=== PATIENT | male | born 1975 | race Two or more races ===

== ENCOUNTER 2021-08-21 14:00 | Outpatient (REF) | payer OTHER, SELFPAY ==
[2021-08-21 14:33] LABS: Binax Internal Control QC Valid; Binax Now Covid-19 Ag Negative (Negative)
== END 2021-08-21 14:01 | disposition home or self-care (01) ==
LOC: HO.LAB 14:00
PROVIDERS: Visit Provider Internal Medicine
DX: Z20.822 Contact with and (suspected) exposure to COVID-19 (principal)
CPT/HCPCS: C9803

== ENCOUNTER 2022-04-08 12:20 | Outpatient (REF) | payer OTHER, SELFPAY ==
[2022-04-08 12:49] LABS: MANUAL DIFF FLAG NO
[2022-04-08 13:21] LABS: Basophils Absolute Auto 0.1 X10*3/uL (0.0-0.2); Basophils Percent Auto 0.6 % (0-2); Eosinophils Absolute Auto 0.5 X10*3/uL (0.0-0.4); Eosinophils Percent Auto 5.7 % (0-4); Hematocrit 45.1 % (42.0-52.0); Hemoglobin 15.6 g/dl (14.0-18.0); Imm Gran Abs Auto 0.05 X10*3/uL (0.00-0.03); Imm Gran Pct Auto 0.6 % (0.0-0.4); Lymphocytes Percent Auto 22.3 % (20-40); Mean Corpuscular HGB Conc 34.6 g/dl (31.0-36.0); Mean Corpuscular Hemoglobin 31.4 pg (27.0-33.0); Mean Corpuscular Volume 90.7 fL (80.0-98.0); Mean Platelet Volume 10.6 fL (9.4-12.4); Monocytes Absolute Auto 0.6 X10*3/uL (0.1-1.2); Monocytes Percent Auto 6.7 % (2-11); Neutrophils Absolute Auto 5.7 x10*3/uL (2.0-8.3); Neutrophils Percent Auto 64.1 % (45-73); Platelet Count 227 X10*3/uL (160-400); Red Blood Count 4.97 X10*6/uL (4.60-5.80); Red Cell Distribution Width 13.1 % (11.0-16.0); White Blood Count 8.8 X10*3/uL (4.8-10.8)
[2022-04-11 10:42] LABS: Immunoglobulin E 492 kU/L (<OR=114)
== END 2022-04-08 12:21 | disposition home or self-care (01) ==
LOC: HO.LAB 12:20
PROVIDERS: PCP Internal Medicine; Visit Provider Internal Medicine Pulmonary Disease
DX: J45.909 Unspecified asthma, uncomplicated (principal); Z91.09 Other allergy status, other than to drugs and biological substances
CPT/HCPCS: 36415; 82785; 85025; 86003; 99202

== ENCOUNTER 2022-04-29 15:06 | Outpatient (REF) | payer OTHER, SELFPAY ==
--- NOTE | 2022-04-29 16:34 | PFT_ITS ---
Forced vital capacity 68%, FEV1 65%, FEV1/FVC ratio 76. HRY54-96 is 52% and MVV 54%. Post bronchodilator therapy, there is a slight improvement in HGM62-21. Total lung capacity 77%. Residual volume 99%. Diffusion capacity 84%. CONCLUSION: Mild restrictive pulmonary disorder. Mild obstructive airway disorder with slight improvement after bronchodilator therapy. Clinical correlation is recommended. MD THAIS Chamorro/NINA / [id number]
== END 2022-04-29 15:07 | disposition home or self-care (01) ==
LOC: HO.RESP 15:06
PROVIDERS: PCP Internal Medicine; Visit Provider Internal Medicine Pulmonary Disease
DX: J45.909 Unspecified asthma, uncomplicated (principal)
CPT/HCPCS: 94060; 94727; 94729

== ENCOUNTER → 2022-05-06 11:50 | Outpatient (BNVA) | payer OTHER, SELFPAY | PROVIDERS: PCP Internal Medicine; Visit Provider Internal Medicine Pulmonary Disease | DX: J45.909 Unspecified asthma, uncomplicated (principal); Z91.09 Other allergy status, other than to drugs and biological substances | CPT/HCPCS: 99212 ==

== ENCOUNTER 2022-06-02 13:37 | Outpatient (REF) | payer OTHER, SELFPAY | END 2022-06-02 13:38 | disposition home or self-care (01) | LOC: HO.MDS 13:37 | PROVIDERS: Visit Provider Internal Medicine Pulmonary Disease | DX: J45.50 Severe persistent asthma, uncomplicated (principal) | CPT/HCPCS: 96372; J2357 ==

== ENCOUNTER 2022-06-16 13:31 | Outpatient (REF) | payer OTHER, SELFPAY | END 2022-06-16 13:32 | disposition home or self-care (01) | LOC: HO.MDS 13:31 | PROVIDERS: Visit Provider Internal Medicine Pulmonary Disease | DX: J45.50 Severe persistent asthma, uncomplicated (principal) | CPT/HCPCS: 96372 ==

== ENCOUNTER 2022-06-30 13:26 | Outpatient (REF) | payer OTHER, SELFPAY | END 2022-06-30 13:27 | disposition home or self-care (01) | LOC: HO.MDS 13:26 | PROVIDERS: Visit Provider Internal Medicine Pulmonary Disease | DX: J45.50 Severe persistent asthma, uncomplicated (principal) | CPT/HCPCS: 96372; J2357 ==

== ENCOUNTER → 2022-07-07 11:39 | Outpatient (BNVA) | payer OTHER, SELFPAY | PROVIDERS: PCP Internal Medicine; Visit Provider Internal Medicine Pulmonary Disease | DX: J45.909 Unspecified asthma, uncomplicated (principal); Z91.09 Other allergy status, other than to drugs and biological substances; Z79.899 Other long term (current) drug therapy | CPT/HCPCS: 99212 ==

== ENCOUNTER 2022-07-23 14:08 | Outpatient (REF) | payer OTHER, SELFPAY | END 2022-07-23 14:09 | disposition home or self-care (01) | LOC: HO.MDS 14:08 | PROVIDERS: Visit Provider Internal Medicine Pulmonary Disease | DX: J45.50 Severe persistent asthma, uncomplicated (principal) | CPT/HCPCS: 96372 ==

== ENCOUNTER 2022-08-06 13:39 | Outpatient (REF) | payer OTHER, SELFPAY | END 2022-08-06 13:40 | disposition home or self-care (01) | LOC: HO.MDS 13:39 | PROVIDERS: Visit Provider Internal Medicine Pulmonary Disease | DX: J45.50 Severe persistent asthma, uncomplicated (principal) | CPT/HCPCS: 96372; J2357 ==

== ENCOUNTER → 2022-08-19 13:57 | Outpatient (BNVA) | payer OTHER, SELFPAY | PROVIDERS: PCP Internal Medicine; Visit Provider Internal Medicine Pulmonary Disease | DX: J45.50 Severe persistent asthma, uncomplicated (principal); Z91.09 Other allergy status, other than to drugs and biological substances; Z79.899 Other long term (current) drug therapy | CPT/HCPCS: 99212 ==

== ENCOUNTER 2022-08-20 13:38 | Outpatient (REF) | payer OTHER, SELFPAY | END 2022-08-20 13:39 | disposition home or self-care (01) | LOC: HO.MDS 13:38 | PROVIDERS: Visit Provider Internal Medicine Pulmonary Disease | DX: J45.50 Severe persistent asthma, uncomplicated (principal) | CPT/HCPCS: 96372 ==

== ENCOUNTER 2022-09-03 13:40 | Outpatient (REF) | payer OTHER, SELFPAY | END 2022-09-03 13:41 | disposition home or self-care (01) | LOC: HO.MDS 13:40 | PROVIDERS: Visit Provider Internal Medicine Pulmonary Disease | DX: J45.50 Severe persistent asthma, uncomplicated (principal) | CPT/HCPCS: 96372; J2357 ==

== ENCOUNTER 2022-09-17 13:25 | Outpatient (REF) | payer OTHER, SELFPAY | END 2022-09-17 13:26 | disposition home or self-care (01) | LOC: HO.MDS 13:25 | PROVIDERS: Visit Provider Internal Medicine Pulmonary Disease | DX: J45.50 Severe persistent asthma, uncomplicated (principal) | CPT/HCPCS: 96372 ==

== ENCOUNTER 2022-10-08 14:12 | Outpatient (REF) | payer OTHER, SELFPAY | END 2022-10-08 14:13 | disposition home or self-care (01) | LOC: HO.MDS 14:12 | PROVIDERS: Visit Provider Internal Medicine Pulmonary Disease | DX: J45.50 Severe persistent asthma, uncomplicated (principal) | CPT/HCPCS: 96372; J2357 ==

== ENCOUNTER 2022-10-23 14:07 | Outpatient (REF) | payer OTHER, SELFPAY | END 2022-10-23 14:08 | disposition home or self-care (01) | LOC: HO.MDS 14:07 | PROVIDERS: Visit Provider Internal Medicine Pulmonary Disease | DX: J45.51 Severe persistent asthma with (acute) exacerbation (principal); Z91.09 Other allergy status, other than to drugs and biological substances; Z79.899 Other long term (current) drug therapy | CPT/HCPCS: 96372; 99212; J2357 ==

== ENCOUNTER → 2022-11-07 13:59 | Outpatient (BNVA) | payer OTHER, SELFPAY | PROVIDERS: PCP Internal Medicine; Visit Provider Internal Medicine Pulmonary Disease | DX: J45.909 Unspecified asthma, uncomplicated (principal); Z71.9 Counseling, unspecified | CPT/HCPCS: 99211 ==

== ENCOUNTER → 2022-12-24 15:02 | Outpatient (BNVA) | payer OTHER, SELFPAY | PROVIDERS: PCP Internal Medicine; Visit Provider Internal Medicine Pulmonary Disease | DX: J45.909 Unspecified asthma, uncomplicated (principal); Z91.09 Other allergy status, other than to drugs and biological substances; Z79.899 Other long term (current) drug therapy | CPT/HCPCS: 99212 ==

== ENCOUNTER 2023-07-02 13:29 | Outpatient (AMB) | payer OTHER, SELFPAY ==
[2023-07-02 13:30] VITALS: BP 122/67; PULSE 62; O2SAT 96; BMI 28.6
--- NOTE | 2023-07-02 13:30 | A.OFFVIS_ITS ---
Intake Vital Signs 07/02/23 13:30 Height 5 ft 7 in Weight 182 lb 7.924 oz BMI 28.6 BP 122/67 Blood Pressure Location Rt brachial Pulse 62 Pulse Source Doppler Pulse Oximetry (%) 96 Oxygen Delivery Method Room Air Intake Visit Reasons: Asthma Allergies No Known Allergies Allergy (Verified 07/02/23 13:32) HPI Asthma HPI Details 47-year-old gentleman, former [facility], now followed for severe persistent asthma and environmental allergies.? He has been using Dupixent, Dulera, albuterol MDI, and Singulair with excellent control of his symptoms. He denies any recent exacerbations. Review of Systems Const Denies daytime sleepiness, Denies excessive sweating, Denies fatigue, Denies fever(s), Denies lethargy, Denies malaise, Denies night sweats, Denies snoring and Denies weight loss Eyes Denies blurry vision and Denies itchy eyes ENT Denies nasal congestion, Denies post nasal drip, Denies sinus pain, Denies sinus pressure and Denies other ( Thrush) Card Denies chest pain, Denies pedal edema, Denies dyspnea, Denies orthopnea and Denies paroxysmal nocturnal dyspnea Resp Denies cough, Denies hemoptysis, Denies excessive phlegm production, Denies dyspnea, Denies snoring and Denies wheezing GI Denies abdominal pain and Denies heartburn Musc Denies myalgias, Denies arthralgias and Denies joint swelling Skin/Breast Denies rash Neuro Denies memory loss and Denies seizure-like activity Psych Denies abnormal sleep pattern, Denies anxiety and Denies memory loss Endo Denies excessive sweating, Denies fatigue and Denies heat intolerance Oneal/Lymph Denies easy bruising Aller/Immun Denies itchy eyes, Denies seasonal rhinorrhea and Denies wheezing Physical Exam Vital Signs: Last Vital Signs Pulse 62 07/02/23 13:30 BP 122/67 07/02/23 13:30 Pulse Ox 96 07/02/23 13:30 Oxygen Delivery Method Room Air 07/02/23 13:30 BMI result Body Mass Index 28.6 Const General: no acute distress and alert Nutritional Appearance: not obese Orientation/consciousness: Other orientation findings ( oriented) HEENT Head: Yes atraumatic Eyes General: appearance normal, both eyes and all related structures Sclerae: sclerae normal EOM: EOMs intact bilaterally Neck Neck: Yes supple Lymphatic: no lymphadenopathy noted Resp Effort & Inspection: normal respiratory effort and no use of accessory muscles Auscultation: clear to auscultation bilaterally Cardio Rate: regular rate Rhythm: regular rhythm Heart sounds: no gallops, no murmurs and no rubs Skin General skin exam: other ( warm) Extrem General: No clubbing, No cyanosis and No edema Assessment & Plan Assessment & Plan (1) Asthma: Code(s): J45.909 - Unspecified asthma, uncomplicated Plan: Well controlled on Dupixent, Dulera, and albuterol MDI. Continue current regime n. (2) Environmental allergies: Code(s): Z91.09 - Other allergy status, other than to drugs and biological substances Plan: Will control on Dupixent Singulair. Continue current regimen. Coding Level of Care Code Est Pt Level 4 (46552) Diagnoses Asthma J45.909 Environmental allergies Z91.09
== END 2023-07-02 13:51 | disposition home or self-care (01) ==
PROVIDERS: PCP Internal Medicine; Visit Provider Internal Medicine Pulmonary Disease
DX: J45.909 Unspecified asthma, uncomplicated (principal); Z91.09 Other allergy status, other than to drugs and biological substances
CPT/HCPCS: 99214

== ENCOUNTER → 2023-07-02 13:29 | Outpatient (BNVA) | payer OTHER, SELFPAY | PROVIDERS: PCP Internal Medicine; Visit Provider Internal Medicine Pulmonary Disease | DX: J45.909 Unspecified asthma, uncomplicated (principal); Z91.09 Other allergy status, other than to drugs and biological substances | CPT/HCPCS: 99212 ==

== ENCOUNTER 2023-12-31 12:52 | Outpatient (AMB) | payer OTHER, SELFPAY ==
[2023-12-31 12:56] VITALS: BP 111/74; PULSE 77; O2SAT 96; BMI 28.1
--- NOTE | 2023-12-31 12:56 | MHC.OFFVIS ---
Vital Signs 12/31/23 12:56 Height 5 ft 7 in Weight 179 lb 10.828 oz BMI 28.1 BP 111/74 Blood Pressure Location Rt brachial Position Sitting Pulse 77 Pulse Source Doppler Pulse Oximetry (%) 96 Oxygen Delivery Method Room Air Intake Visit Reasons: Asthma Allergies No Known Allergies Allergy (Verified 07/02/23 13:32) HPI HPI Asthma: Details: 48-year-old gentleman, former minimal smoker, now followed for severe persistent asthma and environmental allergies.? He has been using Dupixent, Dulera, albuterol MDI, and Singulair with excellent control of his symptoms. He denies any recent exacerbations. Patient does complain of mild erythematous rash over his bilateral anterior shins. Review of Systems Const Denies daytime sleepiness, Denies excessive sweating, Denies fatigue, Denies fever(s), Denies lethargy, Denies malaise, Denies night sweats, Denies snoring and Denies weight loss Eyes Denies blurry vision and Denies itchy eyes ENT Denies nasal congestion, Denies post nasal drip, Denies sinus pain, Denies sinus pressure and Denies other ( Thrush) Card Denies chest pain, Denies pedal edema, Denies dyspnea, Denies orthopnea and Denies paroxysmal nocturnal dyspnea Resp Denies cough, Denies hemoptysis, Denies excessive phlegm production, Denies dyspnea, Denies snoring and Denies wheezing GI Denies abdominal pain and Denies heartburn Musc Denies myalgias, Denies arthralgias and Denies joint swelling Neuro Denies memory loss and Denies seizure-like activity Psych Denies abnormal sleep pattern, Denies anxiety and Denies memory loss Endo Denies excessive sweating, Denies fatigue and Denies heat intolerance Oneal/Lymph Denies easy bruising Aller/Immun Denies itchy eyes, Denies seasonal rhinorrhea and Denies wheezing Physical Exam Vital Signs: Last Vital Signs Pulse 77 12/31/23 12:56 BP 111/74 12/31/23 12:56 Pulse Ox 96 12/31/23 12:56 Oxygen Delivery Method Room Air 12/31/23 12:56 BMI result Body Mass Index 28.1 Const General: no acute distress and alert Nutritional Appearance: not obese Orientation/consciousness: Other orientation findings ( oriented) HEENT Head: Yes atraumatic Eyes General: appearance normal, both eyes and all related structures Sclerae: sclerae normal EOM: EOMs intact bilaterally Neck Neck: Yes supple Lymphatic: no lymphadenopathy noted Resp Effort & Inspection: normal respiratory effort and no use of accessory muscles Auscultation: clear to auscultation bilaterally Cardio Rate: regular rate Rhythm: regular rhythm Heart sounds: no gallops, no murmurs and no rubs Skin General skin exam: other ( warm) Extrem General: No clubbing, No cyanosis and No edema Assessment & Plan Assessment & Plan (1) Asthma: Code(s): J45.909 - Unspecified asthma, uncomplicated Category: Medical Plan: Well controlled on Dupixent, Dulera, duo nebs, and albuterol MDI. Continue current regimen. (2) Environmental allergies: Code(s): Z91.09 - Other allergy status, other than to drugs and biological substances Category: Medical Plan: Well controlled on Dupixent. Patient does complain of mild bilateral anterior lewis rash, if worsens, will consider switching to Tezspire. Coding Level of Care Code Est Pt Level 4 (99034) Diagnoses Asthma J45.909 Environmental allergies Z91.09
== END 2023-12-31 13:16 | disposition home or self-care (01) ==
PROVIDERS: PCP Internal Medicine; Visit Provider Internal Medicine Pulmonary Disease
DX: J45.909 Unspecified asthma, uncomplicated (principal); Z91.09 Other allergy status, other than to drugs and biological substances
CPT/HCPCS: 99214

== ENCOUNTER → 2023-12-31 12:52 | Outpatient (BNVA) | payer OTHER, SELFPAY | PROVIDERS: PCP Internal Medicine; Visit Provider Internal Medicine Pulmonary Disease | DX: J45.909 Unspecified asthma, uncomplicated (principal); Z91.09 Other allergy status, other than to drugs and biological substances | CPT/HCPCS: 99212 ==

== ENCOUNTER 2024-04-18 13:21 | Outpatient (AMB) | payer OTHER, SELFPAY ==
[2024-04-18 13:23] VITALS: BP 126/72; PULSE 84; O2SAT 96; BMI 28.5
--- NOTE | 2024-04-18 13:23 | A.OFFVIS_ITS ---
Vital Signs 04/18/24 13:23 Height 5 ft 7 in Weight 181 lb 14.102 oz BMI 28.5 BP 126/72 Blood Pressure Location Rt brachial Position Sitting Pulse 84 Pulse Source Doppler Pulse Oximetry (%) 96 Oxygen Delivery Method Room Air Intake Visit Reasons: Asthma Allergies No Known Allergies Allergy (Verified 04/18/24 13:29) HPI HPI Asthma: Details: 48-year-old gentleman, former minimal smoker, now followed for severe persistent asthma and environmental allergies.? He has been using Dupixent, Dulera, albuterol MDI, and Singulair with excellent control of his symptoms. He denies any recent exacerbations. Patient does continue to complain of mild erythematous rash over his bilateral anterior shins, that does not appear to have changed since the last visit. Review of Systems Const Denies daytime sleepiness, Denies excessive sweating, Denies fatigue, Denies fever(s), Denies lethargy, Denies malaise, Denies night sweats, Denies snoring and Denies weight loss Eyes Denies blurry vision and Denies itchy eyes ENT Denies nasal congestion, Denies post nasal drip, Denies sinus pain, Denies sinus pressure and Denies other ( Thrush) Card Denies chest pain, Denies pedal edema, Denies dyspnea, Denies orthopnea and Denies paroxysmal nocturnal dyspnea Resp Denies cough, Denies hemoptysis, Denies excessive phlegm production, Denies d yspnea, Denies snoring and Denies wheezing GI Denies abdominal pain and Denies heartburn Musc Denies myalgias, Denies arthralgias and Denies joint swelling Skin/Breast Reports rash (Bilateral shins) Neuro Denies memory loss and Denies seizure-like activity Psych Denies abnormal sleep pattern, Denies anxiety and Denies memory loss Endo Denies excessive sweating, Denies fatigue and Denies heat intolerance Oneal/Lymph Denies easy bruising Aller/Immun Denies itchy eyes, Denies seasonal rhinorrhea and Denies wheezing Physical Exam Vital Signs: Last Vital Signs Pulse 84 04/18/24 13:23 BP 126/72 04/18/24 13:23 Pulse Ox 96 04/18/24 13:23 Oxygen Delivery Method Room Air 04/18/24 13:23 BMI result Body Mass Index 28.5 Const General: no acute distress and alert Nutritional Appearance: not obese Orientation/consciousness: Other orientation findings ( oriented) HEENT Head: Yes atraumatic Eyes General: appearance normal, both eyes and all related structures Sclerae: sclerae normal EOM: EOMs intact bilaterally Neck Neck: Yes supple Lymphatic: no lymphadenopathy noted Resp Effort & Inspection: normal respiratory effort and no use of accessory muscles Auscultation: clear to auscultation bilaterally Cardio Rate: regular rate Rhythm: regular rhythm Heart sounds: no gallops, no murmurs and no rubs Skin General skin exam: other ( warm) Rashes: rashes noted (Bilateral anterior shins) Extrem General: No clubbing, No cyanosis and No edema Assessment & Plan Assessment & Plan (1) Asthma: Code(s): J45.909 - Unspecified asthma, uncomplicated Category: Medical Plan: Well controlled on Dulera, albuterol MDI, duo nebs, and Dupixent. Patient is somewhat concern about a rash on his bilateral shins that appears to have not changed since the last office visit. At this time patient wants to continue with Dupixent. Patient has been advised to notify the office if rash starts to get worse. (2) Environmental allergies: Code(s): Z91.09 - Other allergy status, other than to drugs and biological substances Category: Medical Plan: Well controlled on Dupixent and Singulair. Continue current regimen. Coding Level of Care Code Est Pt Level 4 (02370) Diagnoses Asthma J45.909 Environmental allergies Z91.09
== END 2024-04-18 13:39 | disposition home or self-care (01) ==
PROVIDERS: PCP Internal Medicine; Visit Provider Internal Medicine Pulmonary Disease
DX: J45.909 Unspecified asthma, uncomplicated (principal); Z91.09 Other allergy status, other than to drugs and biological substances
CPT/HCPCS: 99214

== ENCOUNTER → 2024-04-18 13:21 | Outpatient (BNVA) | payer OTHER, SELFPAY | PROVIDERS: PCP Internal Medicine; Visit Provider Internal Medicine Pulmonary Disease | DX: J45.50 Severe persistent asthma, uncomplicated (principal); Z91.09 Other allergy status, other than to drugs and biological substances | CPT/HCPCS: 99212 ==

== ENCOUNTER 2024-07-14 12:56 | Outpatient (AMB) | payer OTHER, SELFPAY ==
--- NOTE | 2024-07-14 13:03 | MHC.OFFVIS ---
Vital Signs 07/14/24 13:05 Height 5 ft 7 in Weight 185 lb BMI 29.0 BP 102/64 Blood Pressure Location Rt brachial Position Sitting Pulse 66 Pulse Source Doppler Pulse Oximetry (%) 96 Oxygen Delivery Method Room Air Intake Visit Reasons: Asthma Allergies No Known Allergies Allergy (Verified 04/18/24 13:29) HPI HPI Asthma: Details: 48-year-old gentleman, former minimal smoker, now followed for severe persistent asthma and environmental allergies.? He has been using Dupixent, Dulera, albuterol MDI, and Singulair with excellent control of his symptoms. He denies any recent exacerbations. Patient does continue to complain of mild erythematous rash over his bilateral anterior shins, that does not appear to have changed since the last visit. Review of Systems Const Denies daytime sleepiness, Denies excessive sweating, Denies fatigue, Denies fever(s), Denies lethargy, Denies malaise, Denies night sweats, Denies snoring and Denies weight loss Eyes Denies blurry vision and Denies itchy eyes ENT Denies nasal congestion, Denies post nasal drip, Denies sinus pain, Denies sinus pressure and Denies other ( Thrush) Card Denies chest pain, Denies pedal edema, Denies dyspnea, Denies orthopnea and Denies paroxysmal nocturnal dyspnea Resp Denies cough, Denies hemoptysis, Denies excessive phlegm production, Denies dyspnea, Denies snoring and Denies wheezing GI Denies abdominal pain and Denies heartburn Musc Denies myalgias, Denies arthralgias and Denies joint swelling Skin/Breast Reports rash Neuro Denies memory loss and Denies seizure-like activity Psych Denies abnormal sleep pattern, Denies anxiety and Denies memory loss Endo Denies excessive sweating, Denies fatigue and Denies heat intolerance Oneal/Lymph Denies easy bruising Aller/Immun Denies itchy eyes, Denies seasonal rhinorrhea and Denies wheezing Physical Exam Vital Signs: Last Vital Signs Pulse 66 07/14/24 13:05 BP 102/64 07/14/24 13:05 Pulse Ox 96 07/14/24 13:05 Oxygen Delivery Method Room Air 07/14/24 13:05 BMI result Body Mass Index 29.0 Const General: no acute distress and alert Nutritional Appearance: not obese Orientation/consciousness: Other orientation findings ( oriented) HEENT Head: Yes atraumatic Eyes General: appearance normal, both eyes and all related structures Sclerae: sclerae normal EOM: EOMs intact bilaterally Neck Neck: Yes supple Lymphatic: no lymphadenopathy noted Resp Effort & Inspection: normal respiratory effort and no use of accessory muscles Auscultation: clear to auscultation bilaterally Cardio Rate: regular rate Rhythm: regular rhythm Heart sounds: no gallops, no murmurs and no rubs Skin General skin exam: other ( Bilateral anterior shins rash) Extrem General: No clubbing, No cyanosis and No edema Assessment & Plan Assessment & Plan (1) Asthma: Code(s): J45.909 - Unspecified asthma, uncomplicated Category: Medical Plan: Baseline controlled on Dupixent, Dulera, albuterol MDI, and duo nebs. At this time patient wants to hold Dupixent to see if it is causing his anterior lewis rash. (2) Environmental allergies: Code(s): Z91.09 - Other allergy status, other than to drugs and biological substances Category: Medical Plan: Continue loratadine. Hold Dupixent. Medications: New fluticasone propionate 50 mcg/actuation 1 spray intranasal DAILY 16 grams 6RF Refilled Dulera 200-5 mcg/actuation (mometasone-formoterol) 2 puffs inhalation BID 1 ea 6RF 30 days NS ipratropium-albuterol 0.5 mg-3 mg(2.5 mg base)/3 mL 3 mL inhalation Q6H PRN 270 mL 6RF shortness of breath or wheezing 30 days albuterol sulfate 90 mcg/actuation 2 puffs inhalation QID PRN 1 ea 6RF for wheezing Coding Level of Care Code Est Pt Level 4 (05127) Diagnoses Asthma J45.909 Environmental allergies Z91.09
[2024-07-14 13:05] VITALS: BP 102/64; PULSE 66; O2SAT 96; BMI 29.0
== END 2024-07-14 13:17 | disposition home or self-care (01) ==
PROVIDERS: PCP Internal Medicine; Visit Provider Internal Medicine Pulmonary Disease
DX: J45.909 Unspecified asthma, uncomplicated (principal); Z91.09 Other allergy status, other than to drugs and biological substances
CPT/HCPCS: 99214

== ENCOUNTER → 2024-07-14 12:56 | Outpatient (BNVA) | payer OTHER, SELFPAY | PROVIDERS: PCP Internal Medicine; Visit Provider Internal Medicine Pulmonary Disease | DX: J45.50 Severe persistent asthma, uncomplicated (principal); Z91.09 Other allergy status, other than to drugs and biological substances | CPT/HCPCS: 99212 ==

== ENCOUNTER 2024-10-03 13:14 | Outpatient (AMB) | payer OTHER, SELFPAY ==
[2024-10-03 13:20] VITALS: BP 122/70; PULSE 71; O2SAT 96; BMI 29.2
--- NOTE | 2024-10-03 13:20 | MHC.OFFVIS ---
Vital Signs 10/03/24 13:20 Height 5 ft 7 in Weight 186 lb 4.65 oz BMI 29.2 BP 122/70 Blood Pressure Location Lt brachial Position Sitting Pulse 71 Pulse Source Doppler Pulse Oximetry (%) 96 Oxygen Delivery Method Room Air Intake Visit Reasons: Asthma Allergies No Known Allergies Allergy (Verified 10/03/24 13:25) HPI HPI Asthma: Details: 48-year-old gentleman, former minimal smoker, now followed for severe persistent asthma and environmental allergies.? He has been using Dupixent, Dulera, albuterol MDI, and Singulair with excellent control of his symptoms. He denies any recent exacerbations. Patient does continue to complain of mild erythematous rash over his bilateral anterior shins, that does not appear to have changed since the last visit, but he did want to stop his Dupixent at the last office visit. Today his symptoms as controlled and he wants to restart Dupixent again. Review of Systems Const Denies daytime sleepiness, Denies excessive sweating, Denies fatigue, Denies fever(s), Denies lethargy, Denies malaise, Denies night sweats, Denies snoring and Denies weight loss Eyes Denies blurry vision and Denies itchy eyes ENT Denies nasal congestion, Denies post nasal drip, Denies sinus pain, Denies sinus pressure and Denies other ( Thrush) Card Denies chest pain, Denies pedal edema, Denies dyspnea, Denies orthopnea and Denies paroxysmal nocturnal dyspnea Resp Denies cough, Denies hemoptysis, Denies excessive phlegm production, Denies dyspnea, Denies snoring and Denies wheezing GI Denies abdominal pain and Denies heartburn Musc Denies myalgias, Denies arthralgias and Denies joint swelling Skin/Breast Denies rash Neuro Denies memory loss and Denies seizure-like activity Psych Denies abnormal sleep pattern, Denies anxiety and Denies memory loss Endo Denies excessive sweating, Denies fatigue and Denies heat intolerance Oneal/Lymph Denies easy bruising Aller/Immun Denies itchy eyes, Denies seasonal rhinorrhea and Denies wheezing Physical Exam Vital Signs: Last Vital Signs Pulse 71 10/03/24 13:20 BP 122/70 10/03/24 13:20 Pulse Ox 96 10/03/24 13:20 Oxygen Delivery Method Room Air 10/03/24 13:20 BMI result Body Mass Index 29.2 Const General: no acute distress and alert Nutritional Appearance: not obese Orientation/consciousness: Other orientation findings ( oriented) HEENT Head: Yes atraumatic Eyes General: appearance normal, both eyes and all related structures Sclerae: sclerae normal EOM: EOMs intact bilaterally Neck Neck: Yes supple Lymphatic: no lymphadenopathy noted Resp Effort & Inspection: normal respiratory effort and no use of accessory muscles Auscultation: clear to auscultation bilaterally Cardio Rate: regular rate Rhythm: regular rhythm Heart sounds: no gallops, no murmurs and no rubs Skin General skin exam: other ( warm) Extrem General: No clubbing, No cyanosis and No edema Assessment & Plan Assessment & Plan (1) Asthma: Code(s): J45.909 - Unspecified asthma, uncomplicated Category: Medical Plan: Suboptimal control on Xolair, duo nebs, and albuterol MDI. Will restart on Dupixent. (2) Environmental allergies: Code(s): Z91.09 - Other allergy status, other than to drugs and biological substances Category: Medical Plan: Expect to improve on Dupixent. Medications: Refilled ipratropium-albuterol 0.5 mg-3 mg(2.5 mg base)/3 mL 3 mL inhalation Q6H PRN 270 mL 6RF shortness of breath or wheezing 30 days Coding Level of Care Code Est Pt Level 4 (85907) Diagnoses Asthma J45.909 Environmental allergies Z91.09
== END 2024-10-03 13:46 | disposition home or self-care (01) ==
PROVIDERS: PCP Internal Medicine; Visit Provider Internal Medicine Pulmonary Disease
DX: J45.909 Unspecified asthma, uncomplicated (principal); Z91.09 Other allergy status, other than to drugs and biological substances
CPT/HCPCS: 99214

== ENCOUNTER → 2024-10-03 13:14 | Outpatient (BNVA) | payer OTHER, SELFPAY | PROVIDERS: PCP Internal Medicine; Visit Provider Internal Medicine Pulmonary Disease | DX: J45.909 Unspecified asthma, uncomplicated (principal); Z91.09 Other allergy status, other than to drugs and biological substances | CPT/HCPCS: 99212 ==

== ENCOUNTER 2025-01-03 13:17 | Outpatient (AMB) | payer OTHER, SELFPAY ==
[2025-01-03 13:22] VITALS: BP 120/78; PULSE 69; O2SAT 95; BMI 28.3
--- NOTE | 2025-01-03 13:22 | A.OFFVIS_ITS ---
Vital Signs 01/03/25 13:22 Height 5 ft 7 in Weight 181 lb BMI 28.3 BP 120/78 Blood Pressure Location Lt brachial Position Sitting Pulse 69 Pulse Source Pulse Oximeter Pulse Oximetry (%) 95 Oxygen Delivery Method Room Air Intake Visit Reasons: asthma Allergies No Known Allergies Allergy (Verified 01/03/25 13:25) HPI HPI asthma: Details: 49-year-old gentleman, former minimal smoker, now followed for severe persistent asthma and environmental allergies.? He has been using Dupixent, Dulera, a lbuterol MDI, and Singulair with excellent control of his symptoms. He denies any recent exacerbations. Patient does continue to complain of mild erythematous rash over his bilateral anterior shins, that does not appear to have changed since the last visit, therefore he wanted to restart on Dupixent. Patient restarted on Dupixent after the last visit with significant improvement in his symptom control. He also continues on Dulera, duo nebs, and albuterol MDI. Review of Systems Const Denies daytime sleepiness, Denies excessive sweating, Denies fatigue, Denies fever(s), Denies lethargy, Denies malaise, Denies night sweats, Denies snoring and Denies weight loss Eyes Denies blurry vision and Denies itchy eyes ENT Denies nasal congestion, Denies post nasal drip, Denies sinus pain, Denies sinus pressure and Denies other ( Thrush) Card Denies chest pain, Denies pedal edema, Denies dyspnea, Denies orthopnea and Denies paroxysmal nocturnal dyspnea Resp Denies cough, Denies hemoptysis, Denies excessive phlegm production, Denies dyspnea, Denies snoring and Denies wheezing GI Denies abdominal pain and Denies heartburn Musc Denies myalgias, Denies arthralgias and Denies joint swelling Skin/Breast Denies rash Neuro Denies memory loss and Denies seizure-like activity Psych Denies abnormal sleep pattern, Denies anxiety and Denies memory loss Endo Denies excessive sweating, Denies fatigue and Denies heat intolerance Oneal/Lymph Denies easy bruising Aller/Immun Denies itchy eyes, Denies seasonal rhinorrhea and Denies wheezing Physical Exam Vital Signs: Last Vital Signs Pulse 69 01/03/25 13:22 BP 120/78 01/03/25 13:22 Pulse Ox 95 01/03/25 13:22 Oxygen Delivery Method Room Air 01/03/25 13:22 BMI result Body Mass Index 28.3 Const General: no acute distress and alert Nutritional Appearance: not obese Orientation/consciousness: Other orientation findings ( oriented) HEENT Head: Yes atraumatic Eyes General: appearance normal, both eyes and all related structures Sclerae: sclerae normal EOM: EOMs intact bilaterally Neck Neck: Yes supple Lymphatic: no lymphadenopathy noted Resp Effort & Inspection: normal respiratory effort and no use of accessory muscles Auscultation: clear to auscultation bilaterally Cardio Rate: regular rate Rhythm: regular rhythm Heart sounds: no gallops, no murmurs and no rubs Skin General skin exam: other ( warm) Extrem General: No clubbing, No cyanosis and No edema Assessment & Plan Assessment & Plan (1) Asthma: Code(s): J45.909 - Unspecified asthma, uncomplicated Category: Medical Plan: Well controlled Dupixent, Xolair, duo nebs, and albuterol MDI. Continue current regimen. Now with an allergic exacerbation, will treat with a brief course of prednisone. (2) Environmental allergies: Code(s): Z91.09 - Other allergy status, other than to drugs and biological substances Category: Medical Plan: Well controlled on Dupixent. Continue current regimen. Medications: New nebulizer accessories (Adult Aerosol Mask) As directed 1 ea 0RF prednisone 40 mg (2 x 20 mg) PO DAILY 10 tabs 0RF Refilled ipratropium-albuterol 0.5 mg-3 mg(2.5 mg base)/3 mL 3 mL inhalation Q6H 30 days PRN 270 mL 6RF shortness of breath or wheezing Coding Level of Care Code Est Pt Level 4 (17629) Diagnoses Asthma J45.909 Environmental allergies Z91.09
--- OUTSIDE RECORDS SUMMARY | 2025-01-03 15:44 | XMS_ITS | Encounter Summary ---
Author Organization [facility] Address [address] [place] [address] Care Team Providers Care Life Sciences Teacher Name Role Phone Lilly Pitts MD Primary Care Provider Patience vailable Encounter Details Date Type Department Care Team Description 02/10/2019 Telephone Pulmonology - [place] [address] [place] [address] Jaime Hall MD [address] [place] [address] Social History Tobacco Use Types Packs/Day Years Used Date Smoking Tobacco: Former Smokeless Tobacco: Former Quit: 2006 Alcohol Use Standard Drinks/Week Comments No 0 (1 standard drink = 0.6 oz pur e alcohol) Sex Assigned at Date Recorded Not on file documented as of this encounter Miscellaneous Notes * Telephone Encounter - Ale Naidu M.A. - 02/10/2019 10:37 AM EDT Left pt msg on vm to return my call to verify receiving Letter of dates for infusions. documented in this encounter Plan of Treatment Not on file documented as of this encounter Visit Diagnoses Not on filedocumented in this encounter Care Teams Life Sciences Teacher Relationship Specialty Start Date End Date Lilly Pitts MD PCP - General Internal Medicine 08/10/18 documented as of this encounter
== END 2025-01-03 13:45 | disposition home or self-care (01) ==
LOC: HO.HPS 13:17
PROVIDERS: PCP Internal Medicine; Visit Provider Internal Medicine Pulmonary Disease
DX: J45.909 Unspecified asthma, uncomplicated (principal); Z91.09 Other allergy status, other than to drugs and biological substances
CPT/HCPCS: 99214

== ENCOUNTER → 2025-01-03 13:17 | Outpatient (BNVA) | payer OTHER, SELFPAY | PROVIDERS: PCP Internal Medicine; Visit Provider Internal Medicine Pulmonary Disease | DX: J45.50 Severe persistent asthma, uncomplicated (principal); Z91.09 Other allergy status, other than to drugs and biological substances | CPT/HCPCS: 99212 ==

== ENCOUNTER 2025-07-03 13:18 | Outpatient (AMB) | payer OTHER, SELFPAY ==
[2025-07-03 13:20] VITALS: BP 118/58; PULSE 72; O2SAT 95; BMI 29.1
--- NOTE | 2025-07-03 13:20 | MHC.OFFVIS ---
Vital Signs 07/03/25 13:20 Height 5 ft 7 in Weight 186 lb BMI 29.1 BP 118/58 L Blood Pressure Location Lt brachial Position Sitting Pulse 72 Pulse Oximetry (%) 95 Oxygen Delivery Method Room Air Intake Visit Reasons: Asthma Allergies No Known Allergies Allergy (Verified 07/03/25 13:25) HPI HPI Asthma: Details: 49-year-old gentleman, former minimal smoker, now followed for severe persistent asthma and environmental allergies.?Patient restarted on Dupixent with significant improvement in his symptom control. He no longer uses Dulera and he rarely needs his albuterol MDI. He denies any recent exacerbations. Review of Systems Const Denies daytime sleepiness, Denies excessive sweating, Denies fatigue, Denies fever(s), Denies lethargy, Denies malaise, Denies night sweats, Denies snoring and Denies weight loss Eyes Denies blurry vision and Denies itchy eyes ENT Denies nasal congestion, Denies post nasal drip, Denies sinus pain, Denies sinus pressure and Denies other ( Thrush) Card Denies chest pain, Denies pedal edema, Denies dyspnea, Denies orthopnea and Denies paroxysmal nocturnal dyspnea Resp Denies cough, Denies hemoptysis, Denies excessive phlegm production, Denies dyspnea, Denies snoring and Denies wheezing GI Denies abdominal pain and Denies heartburn Musc Denies myalgias, Denies arthralgias and Denies joint swelling Skin/Breast Denies rash Neuro Denies memory loss and Denies seizure-like activity Psych Denies abnormal sleep pattern, Denies anxiety and Denies memory loss Endo Denies excessive sweating, Denies fatigue and Denies heat intolerance Oneal/Lymph Denies easy bruising Aller/Immun Denies itchy eyes, Denies seasonal rhinorrhea and Denies wheezing Physical Exam Vital Signs: Last Vital Signs Pulse 72 07/03/25 13:20 BP 118/58 L 07/03/25 13:20 Pulse Ox 95 07/03/25 13:20 Oxygen Delivery Method Room Air 07/03/25 13:20 BMI result Body Mass Index 29.1 Const General: no acute distress and alert Nutritional Appearance: not obese Orientation/consciousness: Other orientation findings ( oriented) HEENT Head: Yes atraumatic Eyes General: appearance normal, both eyes and all related structures Sclerae: sclerae normal EOM: EOMs intact bilaterally Neck Neck: Yes supple Lymphatic: no lymphadenopathy noted Resp Effort & Inspection: normal respiratory effort and no use of accessory muscles Auscultation: clear to auscultation bilaterally Cardio Rate: regular rate Rhythm: regular rhythm Heart sounds: no gallops, no murmurs and no rubs Skin General skin exam: other ( warm) Extrem General: No clubbing, No cyanosis and No edema Assessment & Plan Assessment & Plan (1) Asthma: Code(s): J45.909 - Unspecified asthma, uncomplicated Category: Medical Plan: Well controlled on Dupixent, albuterol, and duo nebs. Continue current regimen. (2) Environmental allergies: Code(s): Z91.09 - Other allergy status, other than to drugs and biological substances Category: Medical Plan: Well controlled on Dupixent. Continue current regimen. Medications: Refilled prednisone 40 mg (2 x 20 mg) PO DAILY 10 tabs 0RF albuterol sulfate 90 mcg/actuation 2 puffs inhalation QID PRN 1 ea 6RF for wheezing Coding Level of Care Code Est Pt Level 4 (91845) Diagnoses Asthma J45.909 Environmental allergies Z91.09
== END 2025-07-03 13:33 | disposition home or self-care (01) ==
LOC: HO.HPS 13:18
PROVIDERS: PCP Internal Medicine; Visit Provider Internal Medicine Pulmonary Disease
DX: J45.909 Unspecified asthma, uncomplicated (principal); Z91.09 Other allergy status, other than to drugs and biological substances
CPT/HCPCS: 99214

== ENCOUNTER → 2025-07-03 13:18 | Outpatient (BNVA) | payer OTHER, SELFPAY | PROVIDERS: PCP Internal Medicine; Visit Provider Internal Medicine Pulmonary Disease | DX: J45.909 Unspecified asthma, uncomplicated (principal); Z91.09 Other allergy status, other than to drugs and biological substances | CPT/HCPCS: 99212 ==